=== PATIENT | female | born 1985 | race Caucasian/White ===

== ENCOUNTER → 2016-10-23 | Outpatient (CLI) | payer OTHER | LOC: BMCIMAGING 11:49 | PROVIDERS: ATTEND Podiatrist Foot & Ankle Surgery | DX: M21.42 Flat foot [pes planus] (acquired), left foot (principal); M21.41 Flat foot [pes planus] (acquired), right foot; M20.11 Hallux valgus (acquired), right foot; M20.12 Hallux valgus (acquired), left foot ==

== ENCOUNTER → 2017-09-17 | Outpatient (CLI) | payer OTHER | LOC: FIMAGING 16:36 | PROVIDERS: ATTEND Podiatrist Foot & Ankle Surgery | DX: M79.662 Pain in left lower leg (principal) ==

== ENCOUNTER → 2017-10-01 | Outpatient (CLI) | payer OTHER | LOC: BMCIMAGING 13:08 | PROVIDERS: ATTEND Podiatrist Foot & Ankle Surgery | DX: Z09 Encounter for follow-up examination after completed treatment for conditions other than malignant neoplasm (principal); Z98.890 Other specified postprocedural states ==

== ENCOUNTER → 2017-11-12 | Outpatient (CLI) | payer OTHER | LOC: BMCIMAGING 09:45 | PROVIDERS: ATTEND Podiatrist Foot & Ankle Surgery | DX: Z09 Encounter for follow-up examination after completed treatment for conditions other than malignant neoplasm (principal); Z98.890 Other specified postprocedural states ==

== ENCOUNTER → 2018-01-27 | Outpatient (CLI) | payer OTHER | LOC: BMCIMAGING 15:58 | PROVIDERS: ATTEND Podiatrist Foot & Ankle Surgery | DX: Z09 Encounter for follow-up examination after completed treatment for conditions other than malignant neoplasm (principal) ==

== ENCOUNTER 2018-04-12 14:03 | Emergency (ER) | payer OTHER ==
[2018-04-12] MEDS ORDERED: OXYCODONE/APAP 5/325 TAB PO ONE (14:14)
[2018-04-12] MEDS ORDERED: IBUPROFEN 800 MG TAB PO ONE (14:14)
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
[2018-04-12 15:46] VITALS: BP 151/108
== END 2018-04-12 15:49 | disposition home or self-care (01) ==
DX: T23.242A Burn of second degree of multiple left fingers (nail), including thumb, initial encounter (principal); T23.201A Burn of second degree of right hand, unspecified site, initial encounter; T25.221A Burn of second degree of right foot, initial encounter; X02.0XXA Exposure to flames in controlled fire in building or structure, initial encounter; Y93.E6 Activity, residential relocation; Y92.010 Kitchen of single-family (private) house as the place of occurrence of the external cause; Y99.8 Other external cause status

== ENCOUNTER → 2018-08-29 | Outpatient (CLI) | payer OTHER | LOC: FIMAGING 10:29 | PROVIDERS: ATTEND Physician Assistant | DX: M79.645 Pain in left finger(s) (principal) ==

== ENCOUNTER → 2018-11-24 | Outpatient (CLI) | payer OTHER | LOC: FIMAGING 11:16 | PROVIDERS: ATTEND Physician Assistant | DX: Z12.31 Encounter for screening mammogram for malignant neoplasm of breast (principal); Z80.3 Family history of malignant neoplasm of breast ==